=== PATIENT | female | born 1955 | race Caucasian/White ===

== ENCOUNTER → 2023-06-08 16:01 | Outpatient (REF) | payer MEDICARE, OTHER, SELFPAY | LOC: HWWDC 16:01 | PROVIDERS: ATTENDING PHYSICIAN Obstetrics & Gynecology; FAMILY PHYSICIAN Family Medicine | DX: Z12.31 Encounter for screening mammogram for malignant neoplasm of breast (principal) | CPT/HCPCS: 77063; 77067 ==

== ENCOUNTER 2024-02-01 15:45 | Emergency (ER) | payer MEDICARE, OTHER, SELFPAY ==
[2024-02-01 15:52] VITALS: BP 145/84
[2024-02-01] MEDS: LET TOPICAL ANESTHETIC GEL 3 ML TOPICAL (17:35)
--- NOTE | 2024-02-01 18:19 | ED.GENMED ---
History of Present Illness
General
Chief Complaint: Fall
Time Seen by Provider: 02/01/24 17:03
History of Present Illness
History of Present Illness:
68-year-old female presents to the emergency department for evaluation of left forehead abrasion/laceration sustained after a ground-level fall. 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 She landed on her left hand and is complaining of
left lateral hand pain as well. Not on blood thinners. No loss of consciousness, denies headache right now
Past History
Past History
ED Past Medical History: Hypercholesterolemia, Other (Migraine headaches ) and Other (SVT )
ED Past Surgical History: Appendectomy (Left sided appendix ), Bowel resection (Surgical resection of a Meckel's diverticulum ), and Other (Rhinoplasty )
Social History
Tobacco: Non-smoker
Alcohol: Occasional
Personal:
Living: with family
Employment: Employed
Family History
Family History: Negative Diabetes, Hypertension, Early CAD, Asthma or Cancer
Review of Systems
Review of Systems
Allergies reviewed?: Yes
All Other Systems: ROS reviewed and negative except as documented in HPI and ROS
Phy Exam
Physical Exam
Physical Exam:
GEN: Well appearing, NAD, WDWN
HEENT: Oral mucosa moist, no scleral icterus, no nasal congestion. 1cm stellate laceration to the left temporal face just lateral to the L eyebrow, no bleeding, minor ecchymosis
Cardiac: Regular rate
Lung: No respiratory distress, no tachypnea
MSK: No gross deformity or injuries
Skin: Good color, no pallor or jaundice, no rashes
Neuro: AO x3; CN II-XII grossly intact. BUE strength 5/5 in all monroy, sensation intact and symmetric. BLE strength 5/5 in all monroy, sensation intact and symmetric
Psych: Calm, cooperative
Course
Orders/Labs/Results
Orders:
Orders
02/01/24 15:57
Hand, Left 3 View [CR Hand - Left Min 3 Views] Urgent
Comment:
Reason For Exam: fell landed on left hand slight swelling
02/01/24 17:17
Lidocaine/Epinephrine/Tetracai [Let Topical Anesthetic Gel] 3 ml TOPICAL NOW STA
Vital Signs
Initial and Last Documented VS:
Initial Vital Signs
Temp Pulse Resp BP Pulse Ox
98.4 F 78 16 145/84 98
02/01/24 15:52 02/01/24 15:52 02/01/24 15:52 02/01/24 15:52 02/01/24 15:52
Last Documented Vital Signs
Temp Pulse Resp BP Pulse Ox
98.4 F 68 18 141/80 98
02/01/24 15:52 02/01/24 18:34 02/01/24 18:34 02/01/24 18:34 02/01/24 18:34
Procedures
Laceration Closure
Left Face:
Status of Wound: clean
Size of Wound in cm: 1
Description of Wound Edges: sharp
Preparation: cleaned with saline
Anesthesia: Topical-LET
Wound exploration: explored to base- no FB
Type of Closure: single layer closure
Skin Closure Material: 6-0 prolene
Number of sutures: 1
MDM/Problems Addressed
MDM/Problems Addressed:
Do not feel that a CT of the head is necessary at this time given that she has neurologically intact and trauma was quite minor. Single suture applied to the wound with good closure, left hand x-ray is unremarkable
*Critical Care Note
Total Time (30-74mins, 75-104mins- exclusive of procedures): Not Applicable
ED Attending Note
-
Portions of this chart may have been created with voice recognition software.� Occasional wrong word or��sound alike� substitutions may have occurred due to the inherent limitations of voice recognition software.
Discharge Plan
Departure
Patient Disposition: Home (Routine Discharge)
Date of Disposition: 02/01/24
Time of Disposition: 18:19
Patient with high blood pressure during this ER visit?: No
Discharge Problem:
Laceration of eyebrow, left, Contusion of left hand
Instructions: Laceration Repair With Stitches (DC)
Prescriptions:
No Action
metoprolol succinate 50 MG tablet extended release 24 hr
50 mg PO HS
omeprazole 20 mg Capsule,Delayed Release(Dr/Ec)
20 mg PO DAILY
Rx Instructions:
30 min before morning meal
diclofenac sodium 75 mg Tablet,Delayed Release (Dr/Ec)
75 mg PO .3 DAYS A WK PRN (Reason: cluster headaches)
Rx Instructions:
if having severe cluster headache may increase to 5 days/week
rosuvastatin 40 mg tablet
40 mg PO HS
Janumet XR 50-1,000 mg tablet, ER multiphase 24 hr
1 tab PO BID@0800,1700
Patient Comments:
pt stated she was taking 2 tabs together at dinner but recently PCP told her to split doses breakfast and dinner
fenofibrate nanocrystallized 145 mg tablet
145 mg PO HS
loperamide [Imodium A-D] 2 mg Capsule
4 mg PO QID PRN (Reason: diarrhea)
diphenoxylate-atropine 2.5-0.025 mg tablet
1 tab PO QID PRN (Reason: if imodium is not effective)
lidocaine 4 % Adhesive Patch,Medicated
1 patch topical DAILY Qty: 5 0RF
Rx Instructions:
for LLQ abdominal pain
nortriptyline 25 mg Capsule
25 mg PO HS Qty: 1 0RF
midodrine 5 mg Tablet
5 mg PO Q4HPRN PRN (Reason: SBP < 100) Qty: 30 0RF
tramadol 50 mg Tablet
50 mg PO Q4HPRN PRN (Reason: mod pain) Qty: 30 0RF
sennosides-docusate sodium [Stool Softener-Stimulant Laxat] 8.6-50 mg Tablet
2 tab-cap PO DAILYPRN PRN (Reason: constipation) Qty: 30 0RF
Referrals:
Charly Villarreal MD [Family Provider] -
Activity Restrictions/Additional Instructions:
Keep wound dry for 24 hours then you may wash gently
Suture removal in 5-7 days
Interventions
Interventions:
*Risk Screen - Suicide Last Done: 02/01/24 15:52
*General Assessment Last Done: 02/01/24 17:00
*Neglect/Abuse Screening Last Done: 02/01/24 15:52
*ED COVID-19 Vaccine History Last Done: 02/01/24 17:00
*Nursing Disposition Last Done: 02/01/24 18:34
ED-Musculoskeletal Assessment Last Done: 02/01/24 17:00
ED- Neurological Assessment Last Done: 02/01/24 17:00
ED-Skin Assessment Last Done: 02/01/24 17:00
Discharge Date and Time
Discharge Date/Time: 02/01/24 18:36
Print Language: [place]IZ[place]
[2024-02-01 18:34] VITALS: BP 141/80
== END 2024-02-01 18:36 | disposition home or self-care (01) ==
LOC: EMR 15:45
PROVIDERS: EMERGENCY PHYSICIAN Emergency Medicine; FAMILY PHYSICIAN Family Medicine
DX: S01.112A Laceration without foreign body of left eyelid and periocular area, initial encounter (principal); S60.222A Contusion of left hand, initial encounter; S00.81XA Abrasion of other part of head, initial encounter; W19.XXXA Unspecified fall, initial encounter; E78.00 Pure hypercholesterolemia, unspecified; I47.10 Supraventricular tachycardia, unspecified
CPT/HCPCS: 99283; 12001; 73130

== ENCOUNTER → 2024-06-28 13:11 | Outpatient (REF) | payer MEDICARE, OTHER, SELFPAY | LOC: HWWDC 13:11 | PROVIDERS: ATTENDING PHYSICIAN Obstetrics & Gynecology Gynecologic Oncology; FAMILY PHYSICIAN Family Medicine; REFERRING PHYSICIAN Obstetrics & Gynecology | DX: Z12.31 Encounter for screening mammogram for malignant neoplasm of breast (principal) | CPT/HCPCS: 77063; 77067 ==

== ENCOUNTER → 2025-02-03 10:46 | Outpatient (REF) | payer MEDICARE, OTHER, SELFPAY | LOC: HWRAD 10:46 | PROVIDERS: ATTENDING PHYSICIAN Obstetrics & Gynecology Gynecologic Oncology; FAMILY PHYSICIAN Family Medicine | DX: C56.2 Malignant neoplasm of left ovary (principal); Z78.0 Asymptomatic menopausal state | CPT/HCPCS: 77080 ==